=== PATIENT | female | born 1970 | race Caucasian/White ===

== ENCOUNTER 2020-02-13 13:43 | Emergency (ER) | payer OTHER ==
[2020-02-13 14:38] LABS: Absolute Neutrophil Ct (ANC) 3.88 (1.4-6.9); BASOPHIL % 0.8 % (0.0-0.4); Basophil (Absolute #) 0.06 (0-0.4); Eosinophil % 4.9 % (0.00-5.0); Eosinophil (Absolute #) 0.36 (0-0.5); Hematocrit 41.3 % (35-47); Hemoglobin 13.6 gm/dl (12.0-16.0); Lymphocyte (Absolute #) 2.45 (1.0-4.6); Lymphocytes % 33.1 % (24.0-44.0); Mean Cell Volume 90.2 fl (78-100); Mean Corpuscular Hemoglobin 29.7 pg (26-32); Mean Corpuscular Hgb Concent. 32.9 g/dl (32-36); Monocyte (Absolute #) 0.66 (0.0-1.3); Monocytes % 8.9 % (0.0-12.0); Neutrophil % 52.3 % (36.0-66.0); Platelet Count 224 K/mm3 (150-450); Red Blood Count 4.58 M/mm3 (4.1-5.4); Red Cell Distribution Width 13.6 % (11.5-14.0); White Blood Count 7.4 K/mm3 (4.0-10.5)
[2020-02-13 14:41] LABS: INR 1.11 (0.8-3.0); PROTIME 12.6 SECONDS (9.95-12.35)
[2020-02-13 14:44] LABS: PTT 31.8 SECONDS (25.3-37.0)
[2020-02-13 14:45] LABS: ALBUMIN 3.8 g/dL (3.5-5.0); ALKALINE PHOSPHATASE 68 U/L (38-126); ANION GAP 8.9 MEQ/L (5-15); BLOOD UREA NITROGEN 9 mg/dL (7-17); CHLORIDE 108 mmol/L (98-107); Calcium 9.1 mg/dL (8.4-10.2); Carbon Dioxide 25 mmol/L (22-30); Creatinine 1 0.85 mg/dL (0.52-1.04); Glucose 112 mg/dL (74-106); Potassium 3.7 mmol/L (3.5-5.1); SGOT/AST 23 U/L (14-36); SGPT/ALT 19 U/L (0-35); SODIUM 139 mmol/L (137-145); Total Protein 6.5 g/dL (6.3-8.2)
[2020-02-13] MEDS ORDERED: APRESOLINE 20 MG/ML INJ IV ONE ×2 (15:23→16:37)
[2020-02-13] MEDS ORDERED: APRESOLINE 20 MG/ML INJ ONE ×2 (15:30→16:39)
[2020-02-13 15:36] LABS: Appearance CLEAR (CLEAR); Bilirubin NEGATIVE (NEGATIVE); Blood NEGATIVE Ery/ul (0-5); Epithelial Cells RARE /HPF (FEW); Glucose NEGATIVE (NEGATIVE); Ketones NEGATIVE (NEGATIVE); Leukocyte Esterase NEGATIVE (NEGATIVE); Mucus SLIGHT /HPF (NEGATIVE); Nitrite NEGATIVE (NEGATIVE); Protein,Urine Dip NEGATIVE (Negative); Specific Gravity 1.013 (1.005-1.025); Urobilinogen NEGATIVE mg/dL (0-1); WBC 0-2 /HPF (0-5)
--- NOTE | 2020-02-13 15:50 | ERPHSYRPT ---
- History of Present Illness Time Seen by Provider: 02/13/20 14:50 Source: patient Patient Subjective Stated Complaint: pt here for not feeling well for a couple days, headache, dizziness, syncope episode at home. checked her b/p and it was elevated at home, she has not been dx with HTN Triage Nursing Assessment: pt alert, walked in, resp easy,skin w/d/p. no edema . moves all ext well. Physician History: 49 years old female with history of seizure disorder, restless leg syndrome, hypothyroidism presented in the ER with chief complaint of elevated blood pressure and syncopal episode. Patient reports she has not been feeling well f or the last couple of days, was having generalized headache moderate intensity sharp in nature since morning associated with nausea but no vomiting. She got out of the bathroom, got lightheaded and was passed out for less than 10 seconds. No seizure-like activity noticed by . She was not postictal. She is still having headache, denies any chest pain palpitations or shortness of breath. Denies any abdominal pain nausea or vomiting. When patient was passed out check blood pressure and it was 180 systolic. She has no history of hypertension. Witnessed: by family Prior Episodes: single episode today Timing/Duration: today Precipitating Factors: unknown Context: sitting Loss of Consciousness: brief (seconds) Charcter of event(s): collapsed Allergies/Adverse Reactions: diphenhydramine [From Triaminic Allergy] Allergy (Verified 02/13/20 14:00) guaifenesin [From Robitussin] Allergy (Verified 02/13/20 14:00) Home Medications: Levothyroxine Sodium [Synthroid] 1 ea DAILY 02/13/20 [History] Hx Influenza Vaccination/Date Given: No Immunizations Up to Date: Yes Travel Risk - International Travel If Yes, where;: N - Coronavirus Screening Close contact with a COVID-19 positive Pt in past 14-21 Days: No - Past Medical History Pertinent Past Medical History: Yes Neurological History: Seizures Endocrine Medical History: Hypothyroidism - Past Surgical History Past Surgical History: Yes Female Surgical History: Hysterectomy, Section Other Surgical History: ear surgery - Social History Smoking Status: Current every day smoker Exposure to second hand smoke: Yes Drug Use: none Patient Lives Alone: No - Female History Hx Last Menstrual Period: hyster Hx Now: No (UNKN) - Review of Systems Constitutional: No Symptoms Eyes: No Symptoms Ears, Nose, & Throat: No Symptoms Respiratory: No Symptoms Cardiac: No Symptoms Abdominal/Gastrointestinal: No Symptoms Genitourinary Symptoms: No Symptoms Musculoskeletal: No Symptoms Skin: No Symptoms Neurological: Headache Psychological: No Symptoms Endocrine: No Symptoms Hematologic/Lymphatic: No Symptoms Immunological/Allergic: No Symptoms Physical Exam - Nursing Vital Signs Nursing Vital Signs: Initial Vital Signs Temperature 99.0 F 02/13/20 13:53 Pulse Rate 88 02/13/20 13:53 Respiratory Rate 20 02/13/20 13:53 Blood Pressure 204/108 02/13/20 13:53 O2 Sat by Pulse Oximetry 98 02/13/20 13:53 Pain Scale Pain Intensity 0 - Carmen Coma Scale Best Eye Response (Carmen): (4) open spontaneously Best Verbal Response (Jackson): (5) oriented Best Motor Response (Jackson): (6) obeys commands Carmen Total: 15 - Physical Exam General Appearance: no apparent distress, alert, anxiety Eye Exam: bilateral eye: normal inspection, EOMI, abnormal pupil (Dilated, sl uggish right pupil ) Ears, Nose, Throat Exam: normal ENT inspection, TMs normal, pharynx normal Neck Exam: normal inspection, non-tender, supple, full range of motion Respiratory: normal breath sounds, lungs clear Cardiovascular: regular rate/rhythm, normal heart sounds Gastrointestinal: soft, normal bowel sounds, No tenderness Extremity Exam: normal inspection, normal range of motion, pelvis stable Mental Status: alert, oriented x 3, cooperative rehab tech Exam: normal hearing, normal speech, PERRL Coordination/Gait: normal finger to nose, normal gait, normal cerebellar func tion Motor/Sensory: no motor deficit, no sensory deficit, no pronator drift, negative Babinski's sign Skin Exam: normal color SpO2 Interpretation: normal SpO2: 94 O2 Delivery: Room Air - Course Nursing assessment & vital signs reviewed: Yes EKG Interpreted by Me: RATE, Sinus Rhythm (69), NORMAL AXIS, NORMAL INTERVALS, NORMAL QRS Ordered Tests: Active Orders 24 hr Category Date Time Status Upper Cutter STAT Care 02/13/20 14:17 Active EKG-ER Only STAT Care 02/13/20 14:15 Active IV Insertion STAT Care 02/13/20 14:15 Active NPO (ED) STAT Care 02/13/20 14:15 Active CHEST 1 VIEW (PORTABLE) Stat Exams 02/13/20 14:16 Taken HEAD WITHOUT CONTRAST [CT] Stat Exams 02/13/20 14:16 Taken CBC W DIFF Stat Lab 02/13/20 14:27 Completed CMP Stat Lab 02/13/20 14:27 Completed HCG,QUALITATIVE URINE Stat Lab 02/13/20 15:09 Completed PROTIME WITH INR Stat Lab 02/13/20 14:27 Completed PTT Stat Lab 02/13/20 14:27 Completed TROPONIN Q3H Lab 02/13/20 14:27 Completed TROPONIN Q3H Lab 02/13/20 17:27 Completed TROPONIN Q3H Lab 02/13/20 20:30 Ordered TROPONIN Q3H Lab 02/13/20 23:30 Ordered UA W/RFX UR CULTURE Stat Lab 02/13/20 15:09 Completed Medication Summary Discontinued Medications Generic Name Dose Route Start Last Admin Trade Name Freq PRN Reason Stop Dose Admin Hydralazine HCl 10 mg 02/13/20 15:23 02/13/20 15:33 Apresoline 20 Mg/Ml Inj IV 02/13/20 15:24 10 mg STAT ONE Administration Hydralazine HCl Confirm 02/13/20 15:30 Apresoline 20 Mg/Ml Inj Administered 02/13/20 15:31 Dose 20 mg .ROUTE .STK-MED ONE Hydralazine HCl 10 mg 02/13/20 16:37 02/13/20 16:41 Apresoline 20 Mg/Ml Inj IV 02/13/20 16:38 10 mg STAT ONE Administration Hydralazine HCl Confirm 02/13/20 16:39 Apresoline 20 Mg/Ml Inj Administered 02/13/20 16:40 Dose 20 mg .ROUTE .STK-MED ONE Ketorolac Tromethamine 30 mg 02/13/20 17:20 02/13/20 17:47 Toradol 30 Mg Injection IV 02/13/20 17:21 30 mg STAT ONE Administration Ketorolac Tromethamine Confirm 02/13/20 17:43 Toradol 30 Mg Injection Administered 02/13/20 17:44 Dose 30 mg .ROUTE .STK-MED ONE Metoclopramide HCl 10 mg 02/13/20 17:20 02/13/20 17:48 Reglan 10 Mg/2 Ml IV 02/13/20 17:21 10 mg STAT ONE Administration Metoclopramide HCl Confirm 02/13/20 17:43 Reglan 10 Mg/2 Ml Administered 02/13/20 17:44 Dose 10 mg .ROUTE .STK-MED ONE Lab/Rad Data: Laboratory Result Diagrams 02/13/20 14:27 02/13/20 14:27 Laboratory Results 02/13/20 02/13/20 02/13/20 Range/Units 17:27 15:09 15:09 WBC (4.0-10.5) K/mm3 RBC (4.1-5.4) M/mm3 Hgb (12.0-16.0) gm/dl Hct (35-47) % MCV (78-100) fl MCH (26-32) pg MCHC (32-36) g/dl RDW (11.5-14.0) % Plt Count (150-450) K/mm3 MPV (7.5-11.0) fl Gran % (36.0-66.0) % Eos # (Auto) (0-0.5) Absolute Lymphs (auto) (1.0-4.6) Absolute Monos (auto) (0.0-1.3) Lymphocytes % (24.0-44.0) % Monocytes % (0.0-12.0) % Eosinophils % (0.00-5.0) % Basophils % (0.0-0.4) % Absolute Granulocytes (1.4-6.9) Basophils # (0-0.4) PT (9.95-12.35) SECONDS INR (0.8-3.0) APTT (25.3-37.0) SECONDS Sodium (137-145) mmol/L Potassium (3.5-5.1) mmol/L Chloride (98-107) mmol/L Carbon Dioxide (22-30) mmol/L Anion Gap (5-15) MEQ/L BUN (7-17) mg/dL Creatinine (0.52-1.04) mg/dL Estimated GFR ML/MIN Glucose (74-106) mg/dL Calcium (8.4-10.2) mg/dL Total Bilirubin (0.2-1.3) mg/dL AST (14-36) U/L ALT (0-35) U/L Alkaline Phosphatase (38-126) U/L Troponin I < 0.012 (0.000-0.034) ng/mL Serum Total Protein (6.3-8.2) g/dL Albumin (3.5-5.0) g/dL Urine Color YELLOW (YELLOW) Urine Appearance CLEAR (CLEAR) Urine pH 6.0 (5-6) Ur Specific [place] 1.013 (1.005-1.025) Urine Protein NEGATIVE (Negative) Urine Ketones NEGATIVE (NEGATIVE) Urine Blood NEGATIVE (0-5) Drew/ul Urine Nitrite NEGATIVE (NEGATIVE) Urine Bilirubin NEGATIVE (NEGATIVE) Urine Urobilinogen NEGATIVE (0-1) mg/dL Ur Leukocyte Esterase NEGATIVE (NEGATIVE) Urine WBC (Auto) 0-2 (0-5) /HPF Urine RBC (Auto) NONE (0-2) /HPF U Epithel Cells (Auto) RARE (FEW) /HPF Urine Bacteria (Auto) NONE (NEGATIVE) /HPF Urine Mucus (Auto) SLIGHT (NEGATIVE) /HPF Urine Culture Reflexed NO (NO) Urine Glucose NEGATIVE (NEGATIVE) mg/dL Urine HCG, Qual NEGATIVE (Negative) 02/13/20 02/13/20 02/13/20 Range/Units 14:27 14:27 14:27 WBC (4.0-10.5) K/mm3 RBC (4.1-5.4) M/mm3 Hgb (12.0-16.0) gm/dl Hct (35-47) % MCV (78-100) fl MCH (26-32) pg MCHC (32-36) g/dl RDW (11.5-14.0) % Plt Count (150-450) K/mm3 MPV (7.5-11.0) fl Gran % (36.0-66.0) % Eos # (Auto) (0-0.5) Absolute Lymphs (auto) (1.0-4.6) Absolute Monos (auto) (0.0-1.3) Lymphocytes % (24.0-44.0) % Monocytes % (0.0-12.0) % Eosinophils % (0.00-5.0) % Basophils % (0.0-0.4) % Absolute Granulocytes (1.4-6.9) Basophils # (0-0.4) PT 12.6 H (9.95-12.35) SECONDS INR 1.11 (0.8-3.0) APTT 31.8 (25.3-37.0) SECONDS Sodium 139 (137-145) mmol/L Potassium 3.7 (3.5-5.1) mmol/L Chloride 108 H (98-107) mmol/L Carbon Dioxide 25 (22-30) mmol/L Anion Gap 8.9 (5-15) MEQ/L BUN 9 (7-17) mg/dL Creatinine 0.85 (0.52-1.04) mg/dL Estimated GFR > 60.0 ML/MIN Glucose 112 H (74-106) mg/dL Calcium 9.1 (8.4-10.2) mg/dL Total Bilirubin 1.00 (0.2-1.3) mg/dL AST 23 (14-36) U/L ALT 19 (0-35) U/L Alkaline Phosphatase 68 (38-126) U/L Troponin I < 0.012 (0.000-0.034) ng/mL Serum Total Protein 6.5 (6.3-8.2) g/dL Albumin 3.8 (3.5-5.0) g/dL Urine Color (YELLOW) Urine Appearance (CLEAR) Urine pH (5-6) Ur Specific [place] (1.005-1.025) Urine Protein (Negative) Urine Ketones (NEGATIVE) Urine Blood (0-5) Drew/ul Urine Nitrite (NEGATIVE) Urine Bilirubin (NEGATIVE) Urine Urobilinogen (0-1) mg/dL Ur Leukocyte Esterase (NEGATIVE) Urine WBC (Auto) (0-5) /HPF Urine RBC (Auto) (0-2) /HPF U Epithel Cells (Auto) (FEW) /HPF Urine Bacteria (Auto) (NEGATIVE) /HPF Urine Mucus (Auto) (NEGATIVE) /HPF Urine Culture Reflexed (NO) Urine Glucose (NEGATIVE) mg/dL Urine HCG, Qual (Negative) 02/13/20 Range/Units 14:27 WBC 7.4 (4.0-10.5) K/mm3 RBC 4.58 (4.1-5.4) M/mm3 Hgb 13.6 (12.0-16.0) gm/dl Hct 41.3 (35-47) % MCV 90.2 (78-100) fl MCH 29.7 (26-32) pg MCHC 32.9 (32-36) g/dl RDW 13.6 (11.5-14.0) % Plt Count 224 (150-450) K/mm3 MPV 10.0 (7.5-11.0) fl Gran % 52.3 (36.0-66.0) % Eos # (Auto) 0.36 (0-0.5) Absolute Lymphs (auto) 2.45 (1.0-4.6) Absolute Monos (auto) 0.66 (0.0-1.3) Lymphocytes % 33.1 (24.0-44.0) % Monocytes % 8.9 (0.0-12.0) % Eosinophils % 4.9 (0.00-5.0) % Basophils % 0.8 (0.0-0.4) % Absolute Granulocytes 3.88 (1.4-6.9) Basophils # 0.06 (0-0.4) PT (9.95-12.35) SECONDS INR (0.8-3.0) APTT (25.3-37.0) SECONDS Sodium (137-145) mmol/L Potassium (3.5-5.1) mmol/L Chloride (98-107) mmol/L Carbon Dioxide (22-30) mmol/L Anion Gap (5-15) MEQ/L BUN (7-17) mg/dL Creatinine (0.52-1.04) mg/dL Estimated GFR ML/MIN Glucose (74-106) mg/dL Calcium (8.4-10.2) mg/dL Total Bilirubin (0.2-1.3) mg/dL AST (14-36) U/L ALT (0-35) U/L Alkaline Phosphatase (38-126) U/L Troponin I (0.000-0.034) ng/mL Serum Total Protein (6.3-8.2) g/dL Albumin (3.5-5.0) g/dL Urine Color (YELLOW) Urine Appearance (CLEAR) Urine pH (5-6) Ur Specific [place] (1.005-1.025) Urine Protein (Negative) Urine Ketones (NEGATIVE) Urine Blood (0-5) Drew/ul Urine Nitrite (NEGATIVE) Urine Bilirubin (NEGATIVE) Urine Urobilinogen (0-1) mg/dL Ur Leukocyte Esterase (NEGATIVE) Urine WBC (Auto) (0-5) /HPF Urine RBC (Auto) (0-2) /HPF U Epithel Cells (Auto) (FEW) /HPF Urine Bacteria (Auto) (NEGATIVE) /HPF Urine Mucus (Auto) (NEGATIVE) /HPF Urine Culture Reflexed (NO) Urine Glucose (NEGATIVE) mg/dL Urine HCG, Qual (Negative) - Progress Progress: improved, re-examined Progress Note: 49 years old is evaluated for headache with elevated blood pressure and syncopal episode. Patient has nonfocal neuro exam throughout stay in the ER. I have offered her symptomatic treatment for headache which patient refused initially. I have obtained CT head which is negative. Her blood pressure was around 200 systolic, I have given her hydralazine 10 mg IV x2 and blood pressure currently is in 150s. She still have mild to moderate headache and now patient is agreeable getting symptomatic treatment. She is given Toradol and Reglan. EKG showed normal sinus rhythm with no acute ischemic changes. Grossly unremarkable chemistries and troponin. Chest x-ray no acute findings. I believe patient has elevated blood pressure for quite some time and has not been taking any medication which is causing her to have headache and lightheadedness. She has intact neuro on repeated evaluations. I have offered her observation admission but patient is reluctant to stay in the hospital and wants to go home. I have advised her to follow-up with her primary care physician for reevaluation but at the same time I would start her on a small dose of losartan as I believe patient does have hypertension. I would also give her clonidine to take as needed if blood pressure more than 160 systolic. Discussed with patient in detail about symptoms/signs of worsening needing return to ER which she seems understanding. 02/13/20 18:15 Counseled pt/family regarding: lab results, diagnosis, need for follow-up, rad results - Departure Departure Disposition: Home Clinical Impression: Uncontrolled hypertension Syncope Qualifiers: Syncope type: unspecified Qualified Code(s): R55 - Syncope and collapse Headache Qualifiers: Headache type: unspecified Headache chronicity pattern: acute headache Intractability: not intractable Qualified Code(s): R51 - Headache Condition: Stable Critical Care Time: Yes Critical Care Time(excluding separately billable procedures): Critical 30-74 mins Referrals: EARL SUTTON MD [Primary Care Provider] - (2 days for reevaluation) Instructions: High Blood Pressure in Adults Additional Instructions: Take Tylenol/ibuprofen as needed for headache. Monitor your blood pressure regularly, keep a log and follow-up with primary care for reevaluation. Return to ER for intractable headache, uncontrolled hypertension, numbness tingling weakness, visual symptoms etc. Take clonidine 1 tablet every 12 hour as needed for blood pressure more than 160 systolic . Prescriptions: Clonidine HCl 0.1 mg [Catapres 0.1 MG] 0.1 mg PO Q12H PRN PRN 10 Days #10 tablet PRN Reason: Hypertension Losartan Potassium 25 mg PO DAILY 30 Days #30 tablet
[2020-02-13] MEDS ORDERED: Reglan 10 MG/2 ML IV ONE (17:20)
[2020-02-13] MEDS ORDERED: TORAdol 30 mg Injection IV ONE (17:20)
[2020-02-13] MEDS ORDERED: Reglan 10 MG/2 ML ONE (17:43)
[2020-02-13] MEDS ORDERED: TORAdol 30 mg Injection ONE (17:43)
[2020-02-13 18:50] VITALS: BP 154/93; PULSE 70; O2SAT 97
--- NOTE | 2020-02-13 22:02 | XRAY ---
Indication: Uncontrolled high blood pressure. Multiple contiguous axial images obtained through the head without contrast. Comparison: None Normal appearing brain parenchyma, ventricles, and bony calvarium. Visualized paranasal sinuses and mastoid air cells are clear. Impression: Normal CT head without contrast exam. Comment: Preliminary interpretation was made by [facility]. No critical discrepancy.
--- NOTE | 2020-02-13 22:02 | XRAY ---
Indication: Uncontrolled high blood pressure. Comparison: None Portable apical lordotic chest demonstrates normal heart and lungs. Bony thorax intact with minimal degenerative changes.
== END 2020-02-13 17:35 | disposition home or self-care (01) ==
LOC: ED 13:43
DX: I10 Essential (primary) hypertension (principal); R55 Syncope and collapse; R51 Headache; E03.9 Hypothyroidism, unspecified; G40.909 Epilepsy, unspecified, not intractable, without status epilepticus
CPT/HCPCS: 36000; 36415; 70450; 71045; 80053; 81001; 84484; 84703; 85025; 85610; 85730; 93005; 93041; 96374; 96375; 96376; 99284; 99291; J0360; J1885

== ENCOUNTER 2020-02-15 01:45 | Emergency (ER) | payer OTHER ==
[2020-02-15] MEDS ORDERED: Sodium Chloride 0.9% 1000 ML 1,000 ML IV STA (02:26)
[2020-02-15] MEDS ORDERED: Hydromorphone 1 mg/ml Ampule IV ONE (02:26)
[2020-02-15] MEDS ORDERED: Zofran 4 MG/2 ML VIAL IV ONE (02:26)
--- NOTE | 2020-02-15 02:26 | ERPHSYRPT ---
- History of Present Illness Time Seen by Provider: 02/15/20 02:26 Historian: patient Exam Limitations: no limitations Patient Subjective Stated Complaint: pt states she has been having rt upper abd pain since yesterday afternoon. states she has been told before that she has a bad gallbladder. Triage Nursing Assessment: pt alert and oriented, answers questions approp. pt ambulatory with steady gait noted. respirations nonlabored with lungs cta. abd soft. pt reports tenderness to rt upper quad. skin warm and dry Physician History: This is a morbidly obese 49-year-old white female who presents with right upper quad abdominal pain that began approximately 6-1/2 hours ago. Patient had [place] toast today, salad and pizza this evening prior to her arrival to this emergency department. She had nausea and vomiting as well. She feels bloating belching and gassy. Patient was told in the past that she has had a contracted gallbladder that was not functioning well. Patient states that she never had it removed because she did not have insurance at the time. Patient denies chest pain. Patient has a history of hypothyroidism and hypertension. She was recently diagnosed with hypertension. Patient took her blood pressure medicine as prescribed. Patient states that she can get a ride home. She drove herself into the emergency department this morning Timing/Duration: yesterday, hour(s) (6-1/2) Activities at Onset: none Quality: sharpness, stabbing Abdominal Pain Onset Location: RUQ Pain Radiation: back (Right) Severity of Pain-Max: moderate Severity of Pain-Current: moderate Modifying Factors: Improves With: vomiting Associated Symptoms: nausea, vomiting Previous symptoms: same symptoms as today Allergies/Adverse Reactions: diphenhydramine [From Triaminic Allergy] Allergy (Verified 02/15/20 02:11) guaifenesin [From Robitussin] Allergy (Verified 02/15/20 02:11) Home Medications: Levothyroxine Sodium [Synthroid] 1 ea DAILY 02/13/20 [History] Hx Tetanus, Diphtheria Vaccination/Date Given: Yes (2017) Hx Influenza Vaccination/Date Given: No Hx Pneumococcal Vaccination/Date Given: No Immunizations Up to Date: Yes Travel Risk - International Travel Have you traveled outside of the country in past 3 weeks: No - Coronavirus Screening Are you exhibiting any of the following symptoms?: No Close contact with a COVID-19 positive Pt in past 14-21 Days: No - Review of Systems Constitutional: No Symptoms Eyes: No Symptoms Ears, Nose, & Throat: No Symptoms Respiratory: No Symptoms Cardiac: No Symptoms Abdominal/Gastrointestinal: Abdominal Pain, Nausea, Vomiting Genitourinary Symptoms: No Symptoms Musculoskeletal: No Symptoms Skin: No Symptoms Neurological: No Symptoms Psychological: No Symptoms Endocrine: No Symptoms Hematologic/Lymphatic: No Symptoms Immunological/Allergic: No Symptoms All Other Systems: Reviewed and Negative - Past Medical History Pertinent Past Medical History: Yes Neurological History: Seizures Cardiac History: Hypertension Endocrine Medical History: Hypothyroidism GI Medical History: No Pertinent History History: No Pertinent History Psycho-Social History: No Pertinent History Female Reproductive Disorders: No Pertinent History - Past Surgical History Past Surgical History: Yes Neuro Surgical History: No Pertinent History Cardiac: No Pertinent History Respiratory: No Pertinent History Gastrointestinal: No Pertinent History Genitourinary: No Pertinent History Musculoskeletal: No Pertinent History Female Surgical History: Hysterectomy, Section Other Surgical History: ear surgery - Social History Smoking Status: Current every day smoker How long have you smoked: 28 yrs Exposure to second hand smoke: Yes Drug Use: none Patient Lives Alone: No - Female History Hx Last Menstrual Period: hyster Hx Now: No - Nursing Vital Signs Nursing Vital Signs: Initial Vital Signs Temperature 98.2 F 02/15/20 01:55 Pulse Rate 77 02/15/20 01:55 Respiratory Rate 18 02/15/20 01:55 Blood Pressure 214/107 02/15/20 01:55 O2 Sat by Pulse Oximetry 98 02/15/20 01:55 Pain Scale Pain Intensity 8 - Physical Exam General Appearance: mild distress, alert, anxiety, obese Eye Exam: PERRL/EOMI, eyes nml inspection Ears, Nose, Throat Exam: normal ENT inspection, moist mucous membranes Neck Exam: normal inspection, non-tender, supple, full range of motion Respiratory Exam: normal breath sounds, lungs clear, airway intact, No chest tenderness, No respiratory distress Cardiovascular Exam: regular rate/rhythm, normal heart sounds, normal peripheral pulses Gastrointestinal/Abdomen Exam: soft, normal bowel sounds, tenderness (Quadrant), guarding, No rebound Pelvic Exam: not done Rectal Exam: not done Back Exam: normal inspection, normal range of motion, No CVA tenderness, No vertebral tenderness Extremity Exam: normal inspection, normal range of motion, pelvis stable Neurologic Exam: alert, oriented x 3, cooperative, carbide die maker II-XII nml as tested, normal mood/affect, nml cerebellar function, nml station & gait, sensation nml Skin Exam: normal color, warm, dry Lymphatic Exam: No adenopathy SpO2 Interpretation: normal SpO2: 98 O2 Delivery: Room Air - Course Nursing assessment & vital signs reviewed: Yes Ordered Tests: Active Orders 24 hr Category Date Time Status IV Insertion STAT Care 02/15/20 02:26 Active ABDOMEN AND PELVIS W/0 CONTRAS [CT] Stat Exams 02/15/20 02:27 Taken AMYLASE Stat Lab 02/15/20 02:31 Completed CBC W DIFF Stat Lab 02/15/20 02:31 Completed CMP Stat Lab 02/15/20 02:31 Completed LIPASE Stat Lab 02/15/20 02:31 Completed Lactic Acid Stat Lab 02/15/20 03:00 Completed UA W/RFX UR CULTURE Stat Lab 02/15/20 03:03 Completed Medication Summary Discontinued Medications Generic Name Dose Route Start Last Admin Trade Name Freq PRN Reason Stop Dose Admin Hydromorphone HCl 1 mg 02/15/20 02:26 02/15/20 02:41 Hydromorphone 1 Mg/Ml Ampule IV 02/15/20 02:27 1 mg STAT ONE Administration Hydromorphone HCl Confirm 02/15/20 02:36 Hydromorphone 1 Mg/Ml Ampule Administered 02/15/20 02:37 Dose 1 mg .ROUTE .STK-MED ONE Sodium Chloride 1,000 mls @ 999 mls/hr 02/15/20 02:26 02/15/20 02:42 Sodium Chloride 0.9% 1000 Ml IV 02/15/20 03:26 999 mls/hr .Q1H1M STA Administration Sodium Chloride Confirm 02/15/20 02:36 Sodium Chloride 0.9% 1000 Ml Administered 02/15/20 02:37 Dose 1,000 mls @ ud .ROUTE .STK-MED ONE Ondansetron HCl 4 mg 02/15/20 02:26 02/15/20 02:42 Zofran 4 Mg/2 Ml Vial IV 02/15/20 02:27 4 mg STAT ONE Administration Ondansetron HCl Confirm 02/15/20 02:36 Zofran 4 Mg/2 Ml Vial Administered 02/15/20 02:37 Dose 4 mg .ROUTE .STK-MED ONE Lab/Rad Data: Laboratory Result Diagrams 02/15/20 02:31 02/15/20 02:31 Laboratory Results 02/15/20 02/15/20 02/15/20 Range/Units 03:03 03:00 02:31 WBC (4.0-10.5) K/mm3 RBC (4.1-5.4) M/mm3 Hgb (12.0-16.0) gm/dl Hct (35-47) % MCV (78-100) fl MCH (26-32) pg MCHC (32-36) g/dl RDW (11.5-14.0) % Plt Count (150-450) K/mm3 MPV (7.5-11.0) fl Gran % (36.0-66.0) % Eos # (Auto) (0-0.5) Absolute Lymphs (auto) (1.0-4.6) Absolute Monos (auto) (0.0-1.3) Lymphocytes % (24.0-44.0) % Monocytes % (0.0-12.0) % Eosinophils % (0.00-5.0) % Basophils % (0.0-0.4) % Absolute Granulocytes (1.4-6.9) Basophils # (0-0.4) Sodium 139 (137-145) mmol/L Potassium 3.6 (3.5-5.1) mmol/L Chloride 108 H (98-107) mmol/L Carbon Dioxide 24 (22-30) mmol/L Anion Gap 10.3 (5-15) MEQ/L BUN 12 (7-17) mg/dL Creatinine 0.79 (0.52-1.04) mg/dL Estimated GFR > 60.0 ML/MIN Glucose 123 H (74-106) mg/dL Lactic Acid 1.5 (0.4-2.0) Calcium 9.1 (8.4-10.2) mg/dL Total Bilirubin 0.90 (0.2-1.3) mg/dL AST 23 (14-36) U/L ALT 19 (0-35) U/L Alkaline Phosphatase 88 (38-126) U/L Serum Total Protein 6.9 (6.3-8.2) g/dL Albumin 4.1 (3.5-5.0) g/dL Amylase 71 (30-110) U/L Lipase 97 (23-300) U/L Urine Color YELLOW (YELLOW) Urine Appearance CLEAR (CLEAR) Urine pH 5.0 (5-6) Ur Specific [place] 1.019 (1.005-1.025) Urine Protein NEGATIVE (Negative) Urine Ketones NEGATIVE (NEGATIVE) Urine Blood NEGATIVE (0-5) Drew/ul Urine Nitrite NEGATIVE (NEGATIVE) Urine Bilirubin NEGATIVE (NEGATIVE) Urine Urobilinogen NEGATIVE (0-1) mg/dL Ur Leukocyte Esterase NEGATIVE (NEGATIVE) Urine WBC (Auto) 0-2 (0-5) /HPF Urine RBC (Auto) 0-2 (0-2) /HPF U Epithel Cells (Auto) RARE (FEW) /HPF Urine Bacteria (Auto) NONE (NEGATIVE) /HPF Urine Mucus (Auto) SLIGHT (NEGATIVE) /HPF Urine Culture Reflexed NO (NO) Urine Glucose NEGATIVE (NEGATIVE) mg/dL 02/15/20 Range/Units 02:31 WBC 8.6 (4.0-10.5) K/mm3 RBC 4.78 (4.1-5.4) M/mm3 Hgb 14.1 (12.0-16.0) gm/dl Hct 43.3 (35-47) % MCV 90.6 (78-100) fl MCH 29.5 (26-32) pg MCHC 32.6 (32-36) g/dl RDW 13.9 (11.5-14.0) % Plt Count 240 (150-450) K/mm3 MPV 10.6 (7.5-11.0) fl Gran % 55.3 (36.0-66.0) % Eos # (Auto) 0.41 (0-0.5) Absolute Lymphs (auto) 2.68 (1.0-4.6) Absolute Monos (auto) 0.66 (0.0-1.3) Lymphocytes % 31.2 (24.0-44.0) % Monocytes % 7.7 (0.0-12.0) % Eosinophils % 4.8 (0.00-5.0) % Basophils % 1.0 (0.0-0.4) % Absolute Granulocytes 4.76 (1.4-6.9) Basophils # 0.09 (0-0.4) Sodium (137-145) mmol/L Potassium (3.5-5.1) mmol/L Chloride (98-107) mmol/L Carbon Dioxide (22-30) mmol/L Anion Gap (5-15) MEQ/L BUN (7-17) mg/dL Creatinine (0.52-1.04) mg/dL Estimated GFR ML/MIN Glucose (74-106) mg/dL Lactic Acid (0.4-2.0) Calcium (8.4-10.2) mg/dL Total Bilirubin (0.2-1.3) mg/dL AST (14-36) U/L ALT (0-35) U/L Alkaline Phosphatase (38-126) U/L Serum Total Protein (6.3-8.2) g/dL Albumin (3.5-5.0) g/dL Amylase (30-110) U/L Lipase (23-300) U/L Urine Color (YELLOW) Urine Appearance (CLEAR) Urine pH (5-6) Ur Specific [place] (1.005-1.025) Urine Protein (Negative) Urine Ketones (NEGATIVE) Urine Blood (0-5) Drew/ul Urine Nitrite (NEGATIVE) Urine Bilirubin (NEGATIVE) Urine Urobilinogen (0-1) mg/dL Ur Leukocyte Esterase (NEGATIVE) Urine WBC (Auto) (0-5) /HPF Urine RBC (Auto) (0-2) /HPF U Epithel Cells (Auto) (FEW) /HPF Urine Bacteria (Auto) (NEGATIVE) /HPF Urine Mucus (Auto) (NEGATIVE) /HPF Urine Culture Reflexed (NO) Urine Glucose (NEGATIVE) mg/dL - Progress Progress: improved, pain not gone completely, re-examined Progress Note: 02/15/20 03:35 The CAT scan of the abdomen and pelvis does not show any acute intra-abdominal pathology. The back feeder plywood layup line describes a cystic structure in the gallbladder fossa this filled with calcified stones. The radiologist mentions that the gallbladder is absent. This patient has not had a cholecystectomy. Likely it is a contracted gallbladder full of stones. Counseled pt/family regarding: lab results, diagnosis, need for follow-up, rad results - Departure Departure Disposition: Home Clinical Impression: Right upper quadrant abdominal pain Condition: Stable Critical Care Time: No Referrals: EARL SUTTON MD [Primary Care Provider] - Additional Instructions: Drink plenty fluids. Avoid fatty greasy spicy foods. Follow-up with your primary care physician today by phone to make arrangements for follow-up appointment and for gallbladder ultrasound if indicated. Prescriptions: Ondansetron ODT 4 MG [Zofran Odt 4 mg] 4 mg PO Q6H PRN PRN #10 tab.rapdis PRN Reason: Vomiting Hydrocodone/APAP 5-325 Tab^^^ [[place] 5-325 Tablet^^^] 1 tab PO Q8H PRN PRN #6 tablet MDD 3 PRN Reason: Pain
[2020-02-15 02:34] LABS: Absolute Neutrophil Ct (ANC) 4.76 (1.4-6.9); Basophil (Absolute #) 0.09 (0-0.4); Eosinophil % 4.8 % (0.00-5.0); Eosinophil (Absolute #) 0.41 (0-0.5); Hematocrit 43.3 % (35-47); Hemoglobin 14.1 gm/dl (12.0-16.0); Lymphocyte (Absolute #) 2.68 (1.0-4.6); Lymphocytes % 31.2 % (24.0-44.0); Mean Cell Volume 90.6 fl (78-100); Mean Corpuscular Hemoglobin 29.5 pg (26-32); Mean Corpuscular Hgb Concent. 32.6 g/dl (32-36); Mean Platelet Volume 10.6 fl (7.5-11.0); Monocyte (Absolute #) 0.66 (0.0-1.3); Monocytes % 7.7 % (0.0-12.0); Neutrophil % 55.3 % (36.0-66.0); Platelet Count 240 K/mm3 (150-450); Red Blood Count 4.78 M/mm3 (4.1-5.4); Red Cell Distribution Width 13.9 % (11.5-14.0); White Blood Count 8.6 K/mm3 (4.0-10.5)
[2020-02-15] MEDS ORDERED: Hydromorphone 1 mg/ml Ampule ONE (02:36)
[2020-02-15] MEDS ORDERED: Sodium Chloride 0.9% 1000 ML 1,000 ML ONE (02:36)
[2020-02-15] MEDS ORDERED: Zofran 4 MG/2 ML VIAL ONE (02:36)
[2020-02-15 02:40] LABS: ALBUMIN 4.1 g/dL (3.5-5.0); ALKALINE PHOSPHATASE 88 U/L (38-126); AMYLASE 71 U/L (30-110); ANION GAP 10.3 MEQ/L (5-15); BLOOD UREA NITROGEN 12 mg/dL (7-17); CHLORIDE 108 mmol/L (98-107); Calcium 9.1 mg/dL (8.4-10.2); Carbon Dioxide 24 mmol/L (22-30); Creatinine 1 0.79 mg/dL (0.52-1.04); Glucose 123 mg/dL (74-106); LIPASE 97 U/L (23-300); Potassium 3.6 mmol/L (3.5-5.1); SGOT/AST 23 U/L (14-36); SGPT/ALT 19 U/L (0-35); SODIUM 139 mmol/L (137-145); Total Protein 6.9 g/dL (6.3-8.2)
[2020-02-15 03:21] LABS: Appearance CLEAR (CLEAR); Bilirubin NEGATIVE (NEGATIVE); Blood NEGATIVE Ery/ul (0-5); Epithelial Cells RARE /HPF (FEW); Glucose NEGATIVE (NEGATIVE); Ketones NEGATIVE (NEGATIVE); Leukocyte Esterase NEGATIVE (NEGATIVE); Mucus SLIGHT /HPF (NEGATIVE); Nitrite NEGATIVE (NEGATIVE); Protein,Urine Dip NEGATIVE (Negative); RBC 0-2 /HPF (0-2); Specific Gravity 1.019 (1.005-1.025); Urobilinogen NEGATIVE mg/dL (0-1); WBC 0-2 /HPF (0-5)
[2020-02-15 04:29] VITALS: BP 157/96; PULSE 84; O2SAT 97
--- NOTE | 2020-02-15 08:52 | XRAY ---
Indication: Right upper quadrant pain, bloating, gassy, and nausea/vomiting. Multiple contiguous axial images obtained through the abdomen and pelvis without contrast as ordered. Comparison: None. Lung bases demonstrates minimal bibasilar fibrosis/scarring. No infiltrate or effusion. Heart is not enlarged. Stomach is mildly distended with food/fluid. Noncontrasted stomach and bowel loops nonobstructed. Normal appendix. There is mild diffuse scattered colonic fecal debris throughout. Contracted gallbladder demonstrates a few gallstones, largest 1 cm. Liver demonstrates anatomic variant for Demian's lobe. Borderline splenomegaly measuring 12.1 cm. Previous hysterectomy. No free fluid/air. Remaining liver, pancreas, spleen, adrenal glands, kidneys, ureters, bladder, and aorta appear unremarkable for noncontrast exam. Osseous structures intact with minimal degenerative changes throughout the thoracolumbar spine. No ventral or inguinal hernias. Impression: 1. Cholelithiasis. Gallbladder sonogram may yield further information if clinically warranted. 2. Mild diffuse fecal stasis without obstruction. 3. Borderline splenomegaly. Comment: Preliminary interpretation was made by [facility] who reports cholecystectomy with "cystic structure in the gallbladder fossa." This finding is a normal contracted gallbladder with cholelithiasis.
== END 2020-02-15 04:20 | disposition home or self-care (01) ==
LOC: ED 01:45
DX: R10.11 Right upper quadrant pain (principal); R11.2 Nausea with vomiting, unspecified; Z79.899 Other long term (current) drug therapy; I10 Essential (primary) hypertension; E03.9 Hypothyroidism, unspecified; F17.210 Nicotine dependence, cigarettes, uncomplicated; E66.9 Obesity, unspecified
CPT/HCPCS: 36000; 36415; 74176; 80053; 81001; 82150; 83605; 83690; 85025; 96374; 96375; 99284; J1170; J2405

== ENCOUNTER 2024-03-08 01:54 | Emergency (ER) | payer SELFPAY ==
[2024-03-08 01:59] VITALS: TEMP 97.6
--- NOTE | 2024-03-08 03:07 | ERPHSYRPT ---
- History of Present Illness Time Seen by Provider: 03/08/24 02:30 Historian: patient, family Exam Limitations: no limitations Patient Subjective Stated Complaint: chest pain that woke me up from sleep Triage Nursing Assessment: pt ambulated into Er without diff. Pt c/o chest pain that woke her up from sleep at 1am. Pain is to the left upper chest area with no radiation. Pt denies any nausea, vomiting or sob. Lungs clear, heart tones reg. No edema noted. Pt is is no distress at this time. Physician History: pt had episode of CP left chest lasting about 12 minutes associated with left arm numbness/radiation, sobreath, and dizziness ( no left arm numbness/radiation tonight). She had 2 similar episodes over the past 6-8 months. She may have had a TIA a few years ago and had MRI and angiograms but no interv entions advised - just watching. No blood thinners. No bleeding dx, No hx trauma. No headache today or neuro symptoms at this time. SHe has also ruq pain that hurts when breathing and recured several times lately over the past few months aggravated by right arm motion and none at this time. Chest clear ht reg without M. Abd soft nontender without peritoneal signs or masses. Normal neuro exam. Normal mental status. No carotid bruits. Discussed risks/benefits of testing /Tx with pt and family including, IV, ASA, CXR, EKG, CBC, CMP, TRop BNP, D DImer, L:ipase, Amylase, Lactate, UA and tehy wish to proceed so these are ordered. Resuots discussed with pt and family. Timing/Duration: today Activities at Onset: sleep Quality: pressure, sharpness Location: central (Left chest) Chest Pain Radiation: arm Severity of Pain-Max: moderate Severity of Pain-Current: none Modifying Factors: Improves With: coughing, change in position Associated Symptoms: shortness of breath, hurts to breathe, swelling/lump in chest, dizziness Prior Chest Pain/Cardiac Workup: recently seen/treated Nitro Today/Relief: 0.4 mg x 1, provided by ED, no relief Aspirin Treatment Today: 81 mg x 4, provided by ED Allergies/Adverse Reactions: diphenhydramine [From Triaminic Allergy] Allergy (Verified 03/08/24 01:59) guaifenesin [From Robitussin] Allergy (Verified 03/08/24 01:59) Home Medications: Levothyroxine Sodium [Synthroid] 1 tape PO DAILY 02/13/20 [History] Hx Tetanus, Diphtheria Vaccination/Date Given: Yes Hx Influenza Vaccination/Date Given: No Hx Pneumococcal Vaccination/Date Given: No Travel Risk - International Travel Have you traveled outside of the country in past 3 weeks: No - Emerging Infectious Disease Are you exhibiting symptoms associated with any current EIDs: No - Review of Systems Constitutional: No Fever, No Chills Eyes: No Symptoms Ears, Nose, & Throat: No Symptoms Respiratory: Dyspnea, No Cough Cardiac: Chest Pain, No Edema, No Syncope Abdominal/Gastrointestinal: No Abdominal Pain, No Nausea, No Vomiting, No Diarrhea Genitourinary Symptoms: No Dysuria Musculoskeletal: Back Pain, No Neck Pain Skin: No Symptoms, No Rash Neurological: No Dizziness, No Focal Weakness, No Sensory Changes Psychological: No Symptoms Endocrine: No Symptoms Hematologic/Lymphatic: No Symptoms Immunological/Allergic: No Symptoms All Other Systems: Reviewed and Negative - Past Medical History Pertinent Past Medical History: Yes Neurological History: Epilepsy, Seizures, Stroke Cardiac History: Hypertension Endocrine Medical History: Hypothyroidism GI Medical History: No Pertinent History, Gallbladder Disease History: No Pertinent History Psycho-Social History: No Pertinent History Female Reproductive Disorders: No Pertinent History - Past Surgical History Past Surgical History: Yes Neuro Surgical History: No Pertinent History Cardiac: No Pertinent History Respiratory: No Pertinent History Gastrointestinal: Cholecystectomy Genitourinary: No Pertinent History Musculoskeletal: No Pertinent History Female Surgical History: Section Other Surgical History: ear surgery - Female History Hx Now: No - Social History Smoking Status: Current every day smoker How long have you smoked: 39 Exposure to second hand smoke: No Drug Use: marijuana Patient Lives Alone: No - Social Determinants of Health Will the patient participate in the screening: Yes Do you worry about a steady place to live?: No Do you have any problems with any of the following?: No known problems In the past 12 months,have you had to go without utilities?: No Transportation Issues: No Has anyone in your support network made you feel unsafe?: No Have you or anyone in your house had to go without enough: No - Nursing Vital Signs Nursing Vital Signs: Initial Vital Signs Temperature 97.6 F 03/08/24 01:55 Pulse Rate 63 03/08/24 01:55 Respiratory Rate 17 03/08/24 01:55 Blood Pressure 154/91 03/08/24 01:55 O2 Sat by Pulse Oximetry 98 03/08/24 01:55 Pain Scale Pain Intensity 0 - Physical Exam General Appearance: no apparent distress, alert Eye Exam: PERRL/EOMI, eyes nml inspection Ears, Nose, Throat Exam: normal ENT inspection, moist mucous membranes Neck Exam: normal inspection, non-tender, supple, full range of motion Respiratory Exam: normal breath sounds, lungs clear, airway intact, No chest tenderness, No respiratory distress, No crackles/rales, No rhonchi, No wheezing, No stridor Cardiovascular Exam: regular rate/rhythm, normal heart sounds Gastrointestinal/Abdomen Exam: soft, No tenderness, No mass Pelvic Exam: deferred Rectal Exam: deferred Back Exam: normal inspection, No CVA tenderness, No vertebral tenderness Extremity Exam: normal inspection, normal range of motion Neurologic Exam: alert, oriented x 3, cooperative, normal mood/affect, sensation nml, No motor deficits Skin Exam: normal color, warm, dry SpO2 Interpretation: normal SpO2: 96 O2 Delivery: Room Air - Course Nursing assessment & vital signs reviewed: Yes EKG Interpreted by Me: Sinus Rhythm, NORMAL AXIS, NORMAL INTERVALS, NORMAL QRS, NORMAL ST-T - Radiology Exams Chest X-ray Interpretation: Reviewed by me, No Pneumothorax, Other (interstitial changes and granulomata) Ordered Tests: Active Orders 24 hr Category Date Time Status EKG-ER Only STAT Care 03/08/24 03:13 Active IV Insertion STAT Care 03/08/24 03:13 Active CHEST 1 VIEW (PORTABLE) Stat Exams 03/08/24 03:27 Taken AMYLASE Stat Lab 03/08/24 03:18 Completed CBC W DIFF Stat Lab 03/08/24 03:18 Completed CMP Stat Lab 03/08/24 03:18 Completed D-DIMER QUANTITATIVE Stat Lab 03/08/24 03:18 Completed HCG QUALITATIVE, SERUM Stat Lab 03/08/24 03:18 Completed LIPASE Stat Lab 03/08/24 03:18 Completed Lactic Acid Stat Lab 03/08/24 03:13 Completed NT PRO BNPII Stat Lab 03/08/24 03:18 Completed TROPONIN Q4H Lab 03/08/24 03:18 Completed TROPONIN Q4H Lab 03/08/24 07:15 Ordered TROPONIN Q4H Lab 03/08/24 11:15 Ordered UA W/RFX UR CULTURE Stat Lab 03/08/24 03:13 Ordered Medication Summary Generic Name Dose Route Start Last Admin Trade Name Lobo PRN Reason Stop Dose Admin Sodium Chloride 1,000 mls @ 100 mls/hr 03/08/24 03:15 03/08/24 03:48 Sodium Chloride 0.9% 1000 Ml IV 04/07/24 03:14 100 mls/hr .Q10H AICHA Administration Discontinued Medications Generic Name Dose Route Start Last Admin Trade Name Freq PRN Reason Stop Dose Admin Nitroglycerin 0.4 mg 03/08/24 03:21 03/08/24 03:46 Nitroglycerin 0.4 Mg (Ed) 0.4 Mg Tab.Subl SL 03/08/24 03:22 0.4 mg STAT ONE Administration Nitroglycerin Confirm 03/08/24 03:46 Nitroglycerin 0.4 Mg (Ed) 0.4 Mg Tab.Subl Administered 03/08/24 03:47 Dose 0.4 mg SL .STK-MED ONE Lab/Rad Data: Laboratory Result Diagrams 03/08/24 03:18 03/08/24 03:18 Laboratory Results 03/08/24 03/08/24 03/08/24 Range/Units 03:18 03:18 03:18 WBC (3.98-10.04) x10^3/uL RBC (3.93-5.22) x10^6/uL Hgb (11.2-15.7) g/dL Hct (34.1-44.9) % MCV (79.4-94.8) fL MCH (25.6-32.2) pg MCHC (32.2-35.5) g/dL RDW (11.7-14.4) % Plt Count (182-369) x10^3/uL MPV (9.4-12.3) fL Gran % (34.0-71.1) % Immature Gran % (Auto) (0.001-0.429) % Nucleat RBC Rel Count (0.00-0.2) % Eos # (Auto) (0.04-0.36) x10^3/uL Immature Gran # (Auto) (0.001-0.031) x10^3u/L Absolute Lymphs (auto) (1.18-3.74) x10^3/uL Absolute Monos (auto) (0.24-0.86) x10^3/uL Absolute Nucleated RBC (0.00-0.012) x10^3u/L Lymphocytes % (19.3-51.7) % Monocytes % (4.7-12.5) % Eosinophils % (0.7-5.8) % Basophils % (0.1-1.2) % Absolute Granulocytes (1.56-6.13) x10^3/uL Basophils # (0.01-0.08) x10^3/uL D-Dimer 0.27 (0.0-0.50) mg/L Sodium (135-145) mmol/L Potassium (3.5-5.1) mmol/L Chloride (98-107) mmol/L Carbon Dioxide (22-30) mmol/L Anion Gap (5-15) MEQ/L BUN (7-17) mg/dL Creatinine (0.52-1.04) mg/dL Estimated GFR ML/MIN Glucose (74-106) mg/dL Lactic Acid (0.4-2.0) Calcium (8.4-10.2) mg/dL Total Bilirubin (0.2-1.3) mg/dL AST (14-36) U/L ALT (0-35) U/L Alkaline Phosphatase (38-126) U/L Troponin I < 0.012 (0.000-0.033) ng/mL NT-Pro-B Natriuret Pep 104 (<300) pg/mL Serum Total Protein (6.3-8.2) g/dL Albumin (3.5-5.0) g/dL Amylase (30-110) U/L Lipase (23-300) U/L Serum HCG, Qual NEGATIVE (NEGATIVE) 03/08/24 03/08/24 03/08/24 Range/Units 03:18 03:18 03:13 WBC 7.0 (3.98-10.04) x10^3/uL RBC 4.78 (3.93-5.22) x10^6/uL Hgb 14.6 (11.2-15.7) g/dL Hct 44.0 (34.1-44.9) % MCV 92.1 (79.4-94.8) fL MCH 30.5 (25.6-32.2) pg MCHC 33.2 (32.2-35.5) g/dL RDW 13.5 (11.7-14.4) % Plt Count 257 (182-369) x10^3/uL MPV 10.5 (9.4-12.3) fL Gran % 54.0 (34.0-71.1) % Immature Gran % (Auto) 0.6 H (0.001-0.429) % Nucleat RBC Rel Count 0.0 (0.00-0.2) % Eos # (Auto) 0.33 (0.04-0.36) x10^3/uL Immature Gran # (Auto) 0.04 H (0.001-0.031) x10^3u/L Absolute Lymphs (auto) 2.26 (1.18-3.74) x10^3/uL Absolute Monos (auto) 0.43 (0.24-0.86) x10^3/uL Absolute Nucleated RBC 0.00 (0.00-0.012) x10^3u/L Lymphocytes % 32.4 (19.3-51.7) % Monocytes % 6.2 (4.7-12.5) % Eosinophils % 4.7 (0.7-5.8) % Basophils % 2.1 H (0.1-1.2) % Absolute Granulocytes 3.77 (1.56-6.13) x10^3/uL Basophils # 0.15 H (0.01-0.08) x10^3/uL D-Dimer (0.0-0.50) mg/L Sodium 138 (135-145) mmol/L Potassium 4.4 (3.5-5.1) mmol/L Chloride 105 (98-107) mmol/L Carbon Dioxide 27 (22-30) mmol/L Anion Gap 10.0 (5-15) MEQ/L BUN 11 (7-17) mg/dL Creatinine 0.80 (0.52-1.04) mg/dL Estimated GFR 89.2 ML/MIN Glucose 99 (74-106) mg/dL Lactic Acid 1.1 (0.4-2.0) Calcium 9.4 (8.4-10.2) mg/dL Total Bilirubin 1.20 (0.2-1.3) mg/dL AST 21 (14-36) U/L ALT 17 (0-35) U/L Alkaline Phosphatase 69 (38-126) U/L Troponin I (0.000-0.033) ng/mL NT-Pro-B Natriuret Pep (<300) pg/mL Serum Total Protein 6.7 (6.3-8.2) g/dL Albumin 4.1 (3.5-5.0) g/dL Amylase 84 (30-110) U/L Lipase 73 (23-300) U/L Serum HCG, Qual (NEGATIVE) - Progress Progress: improved, re-examined Air Movement: good Progress Note: 03/08/24 03:21 pain returned while awaiting tests, giving ntg 03/08/24 05:10 discussed results with pt and family and that even with normal EKG and normal enzymes . and pain that seems primarily affected by arm motion, there still can be CAD and critical Dx requiring intervention, or there could be other vascular Dx , neuro conditions or other causes which could be serious or even sudden from HI all evolving undetected within the limitations of this testing performed - markie understand and prefer outpt f/u with PMD rather than further testing in ER or admission to hospital and they have the capacity to make this choice. SHe has no current pain or SObreath. SHe is advised to return if symptoms return or call [address] hernandes to arrange definitive testing to exclude CV Dx. Blood Culture(s) Obtained: No Antibiotics given: No Counseled pt/family regarding: lab results, diagnosis, need for follow-up, rad results Medical Desision Making - Independent Historian Additional History obtained from: Family - Discussion of managment Reviewed:: Test results, Need for additional workup Agreed on:: Treatment plan, need for follow-up - Diagnostic Testing Diagnostic test were ordered, analyzed, and reviewed by me: Yes Radiological Interpretation: Reviewed by me - Risk of complications The pt has a mod risk of morbidity or mortality based on: Need for prescription drug management The pt has a high risk of morbidity or mortality based on: Decision regarding hospitilization or escalation of hosp level of care - Departure Departure Disposition: Home Clinical Impression: Chest pain of unknown etiology Condition: Good Critical Care Time: No Referrals: EARL SUTTON MD [Primary Care Provider] - Follow up/PCP as directed Instructions: Chest Pain (DC), Multiple pulmonary nodules Additional Instructions: We did not determine the cause for your symptoms and chest pain. Even though the tests were normal that we performed, there still can be heart problems or vascular problems or other conditions developing without being detected yet. Therefore it is important to see your Dr. HERNANDES to begin a more completed workup to rule these things out, and return meantime if any symptoms of concern. There are some small nodular areas on the chest x-ray which should also be followed up by your Dr. even though thee are often aba residual scar of old in fection , but need followup to rule out something of more concern. Followup also your bl;ood pressure with your
[2024-03-08 03:23] LABS: Absolute Neutrophil Ct (ANC) 3.77 x10^3/uL (1.56-6.13); BASOPHIL % 2.1 % (0.1-1.2); Basophil (Absolute #) 0.15 x10^3/uL (0.01-0.08); Eosinophil % 4.7 % (0.7-5.8); Eosinophil (Absolute #) 0.33 x10^3/uL (0.04-0.36); Hemoglobin 14.6 g/dL (11.2-15.7); IMMATURE GRAN # 0.04 x10^3u/L (0.001-0.031); IMMATURE GRAN % 0.6 % (0.001-0.429); Lymphocyte (Absolute #) 2.26 x10^3/uL (1.18-3.74); Lymphocytes % 32.4 % (19.3-51.7); Mean Cell Volume 92.1 fL (79.4-94.8); Mean Corpuscular Hemoglobin 30.5 pg (25.6-32.2); Mean Corpuscular Hgb Concent. 33.2 g/dL (32.2-35.5); Mean Platelet Volume 10.5 fL (9.4-12.3); Monocyte (Absolute #) 0.43 x10^3/uL (0.24-0.86); Monocytes % 6.2 % (4.7-12.5); Platelet Count 257 x10^3/uL (182-369); Red Blood Count 4.78 x10^6/uL (3.93-5.22); Red Cell Distribution Width 13.5 % (11.7-14.4)
[2024-03-08 03:28] LABS: HCG SERUM TEST NEGATIVE (NEGATIVE)
[2024-03-08 03:31] LABS: ALBUMIN 4.1 g/dL (3.5-5.0); BILIRUBIN,TOTAL 1.2 mg/dL (0.2-1.3); Calcium 9.4 mg/dL (8.4-10.2); Creatinine 1 0.8 mg/dL (0.52-1.04); EST GLOMERULAR FILTRATION RATE 89.2 ML/MIN; Potassium 4.4 mmol/L (3.5-5.1); Total Protein 6.7 g/dL (6.3-8.2)
[2024-03-08 03:43] LABS: NT PRO BNPII 104 pg/mL (<300); TROPONIN < 0.012 ng/mL (0.000-0.033)
[2024-03-08] MEDS ORDERED: Nitrostat 0.4 MG (ED) SL ONE (03:46)
[2024-03-08] MEDS ORDERED: Sodium Chloride 0.9% 1000 ML 1,000 ML ONE (03:46)
[2024-03-08] MEDS: Nitrostat 0.4 MG (ED) SL ONE (03:46)
[2024-03-08] MEDS: Sodium Chloride 0.9% 1000 ML 1,000 ML IV SCH (03:48)
[2024-03-08 05:05] VITALS: BP 149/83; PULSE 54; RESP 18
[2024-03-08 05:15] VITALS: O2SAT 96
--- NOTE | 2024-03-09 08:49 | XRAY ---
Indication: Chest pain for months. Comparison: None Portable chest hyperinflated and clear. Heart and mediastinal structures within normal limits. Bony thorax intact. Impression: Nonacute hyperinflated chest.
== END 2024-03-08 05:33 | disposition home or self-care (01) ==
LOC: ED 01:54
DX: R07.9 Chest pain, unspecified (principal); R06.02 Shortness of breath; R42 Dizziness and giddiness; R10.11 Right upper quadrant pain; I10 Essential (primary) hypertension; Z79.899 Other long term (current) drug therapy; Z72.0 Tobacco use
CPT/HCPCS: 36000; 36415; 71045; 80053; 82150; 83605; 83690; 83880; 84484; 84703; 85025; 85379; 93005; 99284; A9270-GY